=== PATIENT | male | born 1980 | race Caucasian/White ===

== ENCOUNTER → 2016-10-22 | Outpatient (CLI) | payer BC ==
--- NOTE | 2016-10-22 18:15 | DX ---
Cervical Spine (AP and Lateral) Clinical Indications: Postoperative follow up; comparison May 09, 2016. Findings: Postoperative changes of anterior cervical fusion, with diskectomy, are seen, with the ant erior compression plate extending from C5 to C7. Disk space prostheses are in stable positions. The bone alignment is normal. The hardware is intact. Prevertebral soft tissues appear normal. Impression: Stable alignment following anterior cervical fusion, with intact hardware.
== END ==
LOC: FIMAGING 15:19
PROVIDERS: ATTEND Physician Assistant Surgical
DX: Z09 Encounter for follow-up examination after completed treatment for conditions other than malignant neoplasm (principal); Z98.1 Arthrodesis status; M47.12 Other spondylosis with myelopathy, cervical region

== ENCOUNTER → 2017-04-24 | Outpatient (CLI) | payer BC | LOC: FIMAGING 13:20 → EDSTATUS 13:21 | PROVIDERS: ATTEND Physician Assistant Surgical | DX: Z09 Encounter for follow-up examination after completed treatment for conditions other than malignant neoplasm (principal); Z98.1 Arthrodesis status ==

== ENCOUNTER 2017-10-18 19:36 | Emergency (ER) | payer BC, MEDICAID ==
[2017-10-18 19:51] VITALS: TEMP 99.1
--- NOTE | 2017-10-18 21:34 | EDPHY ---
H & P Stated Complaint: Left swollen calf with redness since lastnight - Personal History Current Tetanus/Diphtheria Vaccine: Yes Current Tetanus Diphtheria and Acellular Pertussis (TDAP): Yes Tetanus Vaccine Date: 2010 - Medical/Surgical History Hx Asthma: No Hx Chronic Respiratory Disease: No Hx Diabetes: No Hx Cardiac Disease: No Hx Renal Disease: No Hx Cirrhosis: No Hx Alcoholism: No Hx HIV/AIDS: No Hx Splenectomy or Spleen Trauma: No Other PMH: NECK FX C5-7 04/2016, [facility], FREQUENT UTI, C-DIFF, HO, pelvis fx, DVT - Social History Smoking Status: Never smoked HPI/ROS: Chief complaint: Left calf swelling History of present illness: This is a 36-year-old male, C5 quadriplegic who presents to the emergency department for left calf swelling. He reports he has noticed the onset of symptoms over the last day. He states he normally gets dependent edema in his ankles at the end of the day but he has not had involvement of his calf before. He does have a history of a DVT which was treated with Xarelto. It has resolved. Not currently on any anticoagulants. Does report minor trauma as he is in a wheelchair and will bump his legs against the wall from time to time. He denies other associated signs or symptoms. Review of systems: A 10 point review of systems was obtained and other than described above was negative (Tate Young) - Physical Exam Exam: General: Alert, nontoxic Skin: No erythema to the left leg. As edematous compared to the right leg. Musculoskeletal: Patient is wheelchair-bound, no movement of the legs. Vascular: DP and PT pulses 2+. Neurologic: No reported sensation in the lower extremities which is normal for patient. (Tate Young) Constitutional: Initial Vital Signs Temperature (C) 37.3 C 10/18/17 19:48 Heart Rate 77 10/18/17 19:48 Respiratory Rate 16 10/18/17 19:48 Blood Pressure 100/70 10/18/17 19:48 O2 Sat (%) 93 10/18/17 19:48 O2 Delivery Mode Room Air Allergies/Adverse Reactions: No Known Allergies Allergy (Verified 10/18/17 19:51) Home Medications: Medication Instructions Recorded GABAPENTIN 09/06/16 Oxybutynin 10/18/17 Medical Decision Making - Diagnostics Imaging: Discussed imaging studies w/ call worker person Radiologist - Diagnostics Imaging Results: Imaging Impressions Extremity Venous Study 10/18/17 20:13 Impression: No deep venous thrombosis left leg. Findings and recommendations discussed with Emergency Department physician, YUDITH Rider at 21:29 hour, 10/18/2017. Final report concurs with initial preliminary interpretation. ED Course/Re-evaluation: Patient is discussed with my secondary supervising physician Dr. Nimo Farah. Patient presents to the emergency department for left calf swelling. Good vascular supply to the left leg. Lack of sensation to leg which is patient's baseline given traumatic injury. Ultrasound is obtained and negative for DVT. A hematoma is noted. Patient will be discharged home. Home care is discussed. He has an appointment with his [facility] surgeon this . Return precautions are given. Patient voiced understanding and agreement with plan. (Tate Young) The patient was evaluated and managed by the physician [facility] faculty assistant. I have reviewed this chart and I agree with the findings and plan of care as documented , as indicated by my signature. I am the secondary supervising physician. ( Nimo Farah) Differential Diagnosis: Included but not limited to superficial thrombophlebitis, DVT, hematoma, arterial occlusion, cellulitis (Tate Young) Departure - Departure Disposition: Home, Routine, Self-Care Clinical Impression: Hematoma Condition: Good Instructions: Hematoma (ED) Additional Instructions: Follow-up with a primary care doctor for recheck this week If symptoms worsen or new symptoms develop return to the emergency room for recheck Referrals: NONE *PRIMARY CARE P,. [Primary Care Provider] - As per Instructions [facility],. [Clinic] - As per Instructions
[2017-10-18 21:53] VITALS: BP 125/70; PULSE 75; RESP 20; O2SAT 95
== END 2017-10-18 21:53 | disposition home or self-care (01) ==
DX: M79.81 Nontraumatic hematoma of soft tissue (principal)

== ENCOUNTER → 2018-02-26 | Outpatient (CLI) | payer MEDICAID | LOC: FIMAGING 10:49 | PROVIDERS: ATTEND Urology | DX: N32.9 Bladder disorder, unspecified (principal) ==